=== PATIENT | female | born 1955 | race Caucasian/White ===

== ENCOUNTER 2018-05-21 17:03 | Observation (INO) ==
[2018-05-21 17:28] LABS: Basophils % 0.5 % (0.1-2.0); Eosinophils # 0.4 K/mm3 (0.0-0.4); Eosinophils % 5.4 % (0.1-12.0); Hematocrit 49.9 % (37.0-47.0); Hemoglobin 16.3 g/dL (12.2-16.2); Lymphocytes # 1.3 K/mm3 (0.7-4.5); Lymphocytes % 16.9 K/mm3 (10-50); Mean Corpuscular HGB Conc 32.7 g/dL (31.8-35.4); Mean Corpuscular Hemoglobin 28.2 pg (27.0-31.2); Mean Corpuscular Volume 86.3 fl (81-99); Mean Platelet Volume 6.6 fl (7.4-10.4); Monocytes # 0.5 K/mm3 (0.1-1.0); Monocytes % 5.9 % (1.7-9.3); Neutrophils # 5.7 K/mm3 (1.8-7.8); Neutrophils % 71.3 % (37.0-80.0); Platelet Count 235 K/mm3 (142-424); Red Blood Count 5.78 M/mm3 (4.20-5.40); Red Cell Distribution Width 13.8 % (11.5-17.5); White Blood Count 7.9 K/mm3 (4.8-10.8)
--- NOTE | 2018-05-21 17:28 | Emergency Department Note ---
ED Disposition Clinical Impression: Palpitations, CAD (coronary artery disease), Hypertension, Polycythemia, Lung nodule, Unstable angina, Diabetes Disposition: Still a Patient Condition on Discharge: Fair - Critical Care Critical Care Time: No Attestation: On , the high probability of a clinically significant, sudden or life threatening deterioration of the following system(s) required my full and direct attention, intervention and personal management. The time I documented below is in addition to time spent performing reported procedures but includes the following listed in this critical care notation. Medical Decision Making - Sammy Inquiry Pt receiving controlled substance: No Sammy was queried for this patient: No Vital Signs: 05/21/18 17:12 05/21/18 17:47 05/21/18 17:57 Temperature 98.0 F Temperature Source Oral Pulse Rate [Right Brachial] 78 75 76 Respiratory Rate 18 Blood Pressure [Right Arm] 205/110 158/68 110/74 Blood Pressure Mean [Right Arm] 141 98 86 Blood Pressure Source [Right Arm] Automatic Cuff Automatic Cuff Automatic Cuff Blood Pressure Position [Right Arm] Sitting Sitting 02 Sat by Pulse Oximetry 100 96 95 Oxygen Delivery Method Room Air 05/21/18 18:11 Temperature Temperature Source Pulse Rate [Right Brachial] Respiratory Rate Blood Pressure [Right Arm] 110/70 Blood Pressure Mean [Right Arm] 83 Blood Pressure Source [Right Arm] Automatic Cuff Blood Pressure Position [Right Arm] Standing 02 Sat by Pulse Oximetry Oxygen Delivery Method - Lab Data Lab Results 05/21/18 17:17: WBC 7.9, RBC 5.78 H, Hgb 16.3 H, Hct 49.9 H, MCV 86.3, MCH 28.2 , MCHC 32.7, RDW 13.8, Plt Count 235, MPV 6.6 L, Neut % (Auto) 71.3, Lymph % ( Auto) 16.9, [place] % (Auto) 5.9, Eos % (Auto) 5.4, Baso % (Auto) 0.5, Neut # (Auto ) 5.7, Lymph # (Auto) 1.3, [place] # (Auto) 0.5, Eos # (Auto) 0.4, Baso # (Auto) 0.0 05/21/18 17:17: Sodium 134 L, Potassium 3.6, Chloride 100, Carbon Dioxide 30, Anion Gap 4.3 L, BUN 15, Creatinine 0.97, Estimated Creat Clear 78, Estimated GFR 58 L, Est GFR ( Amer) 70, Glucose 226 H, Calcium 9.8, Total Bilirubin 0.7, AST 10 L, ALT 23, Alkaline Phosphatase 92, Total Creatine Kinase 37, CK-MB (CK-2) 0.5, CK-MB (CK-2) Rel Index 1.4, Troponin I < 0.02, Total Protein 7.9, Albumin 3.6, Globulin 4.3 H, Albumin/Globulin Ratio 0.8 L, TSH 0.01 L, Free T4 Index 2.4 L, Thyroxine (T4) 8.1, T3 Uptake 30 L 05/21/18 17:17: B-Natriuretic Peptide 15 05/21/18 17:17: Magnesium 1.8 Result diagrams: 05/21/18 17:17 05/21/18 17:17 Orders (Tests/Meds): ED MEDICATIONS Generic Name Dose Route Start Last Admin Trade Name Freq PRN Reason Stop Dose Admin Sodium Chloride 1,000 mls @ 500 mls/hr 05/21/18 17:30 05/21/18 17:57 Sod Chlor 0.9% 1000ml Bag IV 05/21/18 19:29 500 mls/hr .Q2H DARNELL Administration Discontinued Medications Generic Name Dose Route Start Last Admin Trade Name Freq PRN Reason Stop Dose Admin Nitroglycerin 0.5 gm 05/21/18 17:24 05/21/18 17:57 Nitroglycerin 1 Inch Oint Udp TD 05/21/18 17:25 Not Given ONCE ONE ORDERS Category Date Time Status XR chest portable Stat Exams 05/21/18 17:20 Taken - ECG Data Tracing #1 Normal sinus rhythm 73/min normal P-wave QRS and T waves no acute findings. ECG initial impression date: 05/21/18 ECG initial impression time: 17:10 Medical Decision Narrative: Ms. bradford's blood pressure is improved after nitroglycerin paste to 160 systolic she remained to be symptomatic with minimal exertion. I discussed her case with Dr. Anaya who believed it might be an angina equivalent, he would be admitted for rule out OH protocol and cardiac workup. Arrhythmia/Palpitations HPI - General Chief Complaint: Arrhythmia/Palpitations Stated Complaint: irregular heartrate and soa Time Seen by Provider: 05/21/18 17:20 Mode of Arrival: Wheelchair Limitations: No Limitations - History of Present Illness HPI narrative: 62 years old white female with history of coronary artery disease, status post CABG and rheumatoid arthritis. She fired her cardiology. 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 Today since 8:45 AM,she started experiencing palpitations every time she tries to talk, she is getting weaker and has decreased appetite. Onset (ago): hour(s) Time: 08:45 Duration: intermittent Context: occurred during exertion Associated symptoms: shortness of breath - Related Data Allergies Allergy/AdvReac Type Severity Reaction Status Date / Time Latex, Natural Rubber Allergy Verified 05/21/18 17:18 Penicillins Allergy Verified 05/21/18 17:18 [facility] History I have reviewed the patient's past medical history: Yes - Social History Smoking Status: Never smoker Alcohol Intake: never - Psychiatric History Expresses thoughts of harming self/others: None Suicide Plan Description: No Plan ROS Obtained: Yes All systems reviewed & no additional complaints Physical Exam - General General appearance: alert, in no apparent distress, anxious - Head Head exam: atraumatic, normocephalic, normal inspection - Eye Eye exam: Present: normal appearance, PERRL, EOMI. Absent: scleral icterus, nystagmus - ENT ENT exam: Present: normal exam, normal oropharynx, mucous membranes moist, TM's normal bilaterally, normal external ear exam - Neck Neck exam: Present: normal inspection, full ROM, trachea midline. Absent: tenderness, meningismus, lymphadenopathy - Chest Chest inspection: Present: normal inspection, symmetric chest wall rise. Absent : tenderness - Respiratory Respiratory exam: Present: normal lung sounds bilaterally. Absent: respiratory distress - Cardiovascular Cardiovascular exam: Present: regular rate, normal rhythm. Absent: JVD - Abdominal Exam Abdominal exam: Present: soft, normal bowel sounds. Absent: distention, tenderness, guarding - Extremities Exam Extremities exam: Present: normal inspection, full ROM, normal capillary refill. Absent: calf tenderness - Back Exam Back exam: Present: normal inspection. Absent: tenderness - Neurological Exam Neurological exam: Present: alert, oriented X3, CN II-XII intact, motor sensory deficit, reflexes normal - Psychiatric Psychiatric exam: Present: normal affect, normal mood - Skin Skin exam: Present: warm, dry, intact, normal color - Lymphatic Lymphatic Findings: no adenopathy
[2018-05-21 17:45] LABS: Alanine Aminotransferase 23 U/L (12-78); Albumin Level 3.6 gm/dL (3.4-5.0); Albumin/Globulin Ratio 0.8 (1.1-1.8); Alkaline Phosphatase 92 U/L (46-116); Anion Gap 4.3 mEq/L (5-15); Aspartate Amino Transferase 10 U/L (15-37); Bilirubin,Total 0.7 mg/dL (0.2-1.0); Blood Urea Nitrogen 15 mg/dL (7-18); Calcium 9.8 mg/dL (8.5-10.1); Carbon Dioxide 30 mmol/L (21.0-32.0); Chloride 100 mmol/L (98-107); Creatine Kinase 37 U/L (26-192); Globulin 4.3 gm/dl (1.3-3.2); Glucose 226 mg/dL (74-106); Potassium 3.6 mmoL/L (3.5-5.1); Sodium 134 mmol/L (136-145); Total Protein,Serum 7.9 gm/dL (6.4-8.2)
[2018-05-21 17:46] LABS: Free Thyroxine Index 2.4 ug/dL (5.93-13.13); T4 (Thyroxine) 8.1 ug/dl (4.7-13.3); Triiodothryronine (T3) Uptake 30 % (31-39)
[2018-05-21 17:52] LABS: Thyroid Stimulating Hormone 0.01 uIU/ml (0.358-3.740)
[2018-05-22 06:27] LABS: Basophils # 0.1 K/mm3 (0-0.2); Basophils % 0.5 % (0.1-2.0); Eosinophils # 0.6 K/mm3 (0.0-0.4); Eosinophils % 6.9 % (0.1-12.0); Hematocrit 42.8 % (37.0-47.0); Lymphocytes # 2.3 K/mm3 (0.7-4.5); Lymphocytes % 26.2 K/mm3 (10-50); Mean Corpuscular HGB Conc 32.6 g/dL (31.8-35.4); Mean Corpuscular Volume 85.9 fl (81-99); Mean Platelet Volume 6.6 fl (7.4-10.4); Monocytes # 0.7 K/mm3 (0.1-1.0); Monocytes % 8.3 % (1.7-9.3); Neutrophils % 58.1 % (37.0-80.0); Platelet Count 202 K/mm3 (142-424); Red Blood Count 4.98 M/mm3 (4.20-5.40); Red Cell Distribution Width 13.8 % (11.5-17.5); White Blood Count 8.6 K/mm3 (4.8-10.8)
[2018-05-22 06:39] LABS: Hemoglobin 13.9 g/dL (12.2-16.2)
[2018-05-22 07:02] LABS: Anion Gap 9.3 mEq/L (5-15); Blood Urea Nitrogen 12 mg/dL (7-18); Carbon Dioxide 29 mmol/L (21.0-32.0); Chloride 107 mmol/L (98-107); Chol/HDL Ratio 3.7 (1-3.5); Cholesterol 160 mg/dL (140-200); Glucose 97 mg/dL (74-106); HDL Cholesterol 43 mg/dL (29-89); LDL Cholesterol 97 mg/dL (0-130); Potassium 3.3 mmoL/L (3.5-5.1); Sodium 142 mmol/L (136-145); Triglycerides 101 mg/dL (30-200); VLDL Cholesterol 20 mg/dL (0-40)
[2018-05-22 07:06] LABS: Calcium 8.8 mg/dL (8.5-10.1)
--- NOTE | 2018-05-22 07:11 | Pharmacy Consult Notes ---
[facility] Pharmacy VTE Monitoring - Patient Demographics Admission date: 05/21/18 Report Date: 05/22/18 Time: 07:10 Allergies/Adverse Reactions: Patient Allergies Latex, Natural Rubber Allergy (Verified 05/21/18 17:18) morphine Allergy (Verified 05/21/18 19:28) Sulfa (Sulfonamide Antibiotics) Allergy (Verified 05/21/18 19:28) Height: 1.63 m Weight: 89.9 kg Patient Problems: Current Active Problems Palpitations (Acute) CAD (coronary artery disease) (Acute) Hypertension (Acute) Polycythemia (Acute) Lung nodule (Acute) Unstable angina (Acute) Diabetes (Acute) - VTE Risk Labs: VTE Related Lab Results Hgb 13.9 g/dL (12.2-16.2) D 05/22/18 06:08 Hct 42.8 % (37.0-47.0) 05/22/18 06:08 Plt Count 202 K/mm3 (142-424) 05/22/18 06:08 BUN 12 mg/dL (7-18) 05/22/18 06:08 Creatinine 0.64 mg/dL (0.55-1.02) D 05/22/18 06:08 Estimated Creat Clear 81 mL/min (0-300) 05/22/18 06:08 VTE Score: 7 VTE Risk Level: Moderate Risk - Prophylaxis VTE Prophylaxis Ordered?: Yes Types of VTE Prophylaxis: Pharmacological Pharmacologic Type: Enoxaparin - VTE Diagnosis Confirmed Treatment or plan recommended: Continue Current Treatment
--- NOTE | 2018-05-22 07:48 | History & Physical Report ---
*Admission Date: 05/21/18 *Chief complaint: Shortness of air *History of present illness: 62-year-old white female, history of coronary disease, status post CABG approximately 6 years ago and left heart catheterization one year ago with uncertain results, who presented to the emergency department yesterday evening with the insidious onset of shortness of air that culminated in restriction of her activities yesterday. Also notes that she has had increasing edema over the past couple of weeks. She has denies chest pain but does report some palpitations. In the emergency department her laboratory studies including BNP levels and troponins were unremarkable, had evidence of overmedicated hypothyroidism with suppressed TSH levels and slight hypokalemia. She was admitted for rule out HI and further diagnostic testing. Apparently she no longer sees her cardiology group in [facility]. [facility] History I have reviewed the patient's past medical history: Yes Medical History: Reports:: Atherosclerotic Heart Disease, Coronary Artery Disease, Hyperlipidemia, Hypertension, Myocardial Infarction, Palpitations Denies:: Cancer, Diabetes Mellitus Type 1, Diabetes Mellitus Type 2, MRSA Other Medical History: Reports: Arthritis, Chemotherapy (not for cancer), Hypothyroidism, Sinus Problems Other Surgeries: Yes: Angiogram, Cardiac Catheterization, Cardiac Surgery, Hysterectomy-Total Amputation: No Fractures: No - *Social History Educational Level: Completed College Smoking Status: Former smoker Alcohol Intake: never Occupational Status: disabled Housing: house Household Members: other - Psychiatric History Expresses thoughts of harming self/others: None Suicide Plan Description: No Plan *Family Hx:: Cancer, Coronary Artery Disease, Diabetes, Hypertension Review of Systems - Review of Systems Review of systems:: pertinent systems reviewed and negative unless documented below - Constitutional Denies anorexia, Denies body ache(s), Denies chills - Eyes Denies blind spots, Denies blurry vision - ENT Denies abnormal hearing, Denies bleeding gums, Denies change in voice - *Cardiovascular Reports shortness of breath, Reports shortness of breath with activity, Reports leg swelling, Reports rapid, pounding, or irregular heartbeat, Reports foot swelling, Denies chest pain, Denies chest pain at rest, Denies chest pain with activity, Denies leg pain with activity, Denies excessive sweating, Denies generalized swelling, Denies irregular heart rhythm, Denies lightheadedness, Denies shortness of breath when lying down, Denies shortness of breath causing sudden awakening - *Respiratory Reports shortness of breath with activity, Denies change in phlegm color, Denies chest congestion - *Gastrointestinal Denies abdominal pain, Denies belching - *Musculoskeletal Denies abnormal walking, Denies joint pain, Denies decreased muscle mass - *Neurologic Denies abnormal walking, Denies abnormal hearing Meds Home Medications Medication Instructions Recorded Confirmed Type Furosemide [Furosemide 40MG tAB] 40 mg PO DAILY PRN 05/21/18 05/21/18 History Lisinopril [Lisinopril 10mg Tab] 10 mg PO DAILY 05/21/18 05/21/18 History Naproxen 500 mg PO DAILY 05/21/18 History Thyroid,Pork [[place] Thyroid] 120 mg PO DAILY 05/21/18 05/21/18 History Allergies Allergy/AdvReac Type Severity Reaction Status Date / Time Latex, Natural Rubber Allergy Verified 05/21/18 17:18 morphine Allergy Verified 05/21/18 19:28 Sulfa (Sulfonamide Allergy Verified 05/21/18 19:28 Antibiotics) Exam Vital signs and Labs for Last 24 Hours: Temp Pulse Resp BP Pulse Ox 97.8 F 79 18 143/74 94 L 05/22/18 07:22 05/22/18 07:22 05/22/18 07:22 05/22/18 07:22 05/22/18 07:22 Laboratory Results - last 24 hr 05/21/18 17:17: WBC 7.9, RBC 5.78 H, Hgb 16.3 H, Hct 49.9 H, MCV 86.3, MCH 28.2 , MCHC 32.7, RDW 13.8, Plt Count 235, MPV 6.6 L, Neut % (Auto) 71.3, Lymph % ( Auto) 16.9, [place] % (Auto) 5.9, Eos % (Auto) 5.4, Baso % (Auto) 0.5, Neut # (Auto ) 5.7, Lymph # (Auto) 1.3, [place] # (Auto) 0.5, Eos # (Auto) 0.4, Baso # (Auto) 0.0 05/21/18 17:17: Sodium 134 L, Potassium 3.6, Chloride 100, Carbon Dioxide 30, Anion Gap 4.3 L, BUN 15, Creatinine 0.97, Estimated Creat Clear 78, Estimated GFR 58 L, Est GFR ( Amer) 70, Glucose 226 H, Calcium 9.8, Total Bilirubin 0.7, AST 10 L, ALT 23, Alkaline Phosphatase 92, Total Creatine Kinase 37, CK-MB (CK-2) 0.5, CK-MB (CK-2) Rel Index 1.4, Troponin I < 0.02, Total Protein 7.9, Albumin 3.6, Globulin 4.3 H, Albumin/Globulin Ratio 0.8 L, TSH 0.01 L, Free T4 Index 2.4 L, Thyroxine (T4) 8.1, T3 Uptake 30 L 05/21/18 17:17: B-Natriuretic Peptide 15 05/21/18 17:17: Magnesium 1.8 05/21/18 20:20: Troponin I < 0.02 05/22/18 01:35: Troponin I < 0.02 05/22/18 06:08: WBC 8.6, RBC 4.98, Hgb 13.9 D, Hct 42.8, MCV 85.9, MCH 28.0, MCHC 32.6, RDW 13.8, Plt Count 202, MPV 6.6 L, Neut % (Auto) 58.1, Lymph % (Auto ) 26.2, [place] % (Auto) 8.3, Eos % (Auto) 6.9, Baso % (Auto) 0.5, Neut # (Auto) 5.0, Lymph # (Auto) 2.3, [place] # (Auto) 0.7, Eos # (Auto) 0.6 H, Baso # (Auto) 0.1 05/22/18 06:08: Sodium 142, Potassium 3.3 L, Chloride 107, Carbon Dioxide 29, Anion Gap 9.3, BUN 12, Creatinine 0.64 D, Estimated Creat Clear 81, Estimated GFR 93, Est GFR ( Amer) 113 D, Glucose 97 D, Calcium 8.8 D, Troponin I < 0.02, Triglycerides 101, Cholesterol 160, LDL Cholesterol 97, VLDL Cholesterol 20, HDL Cholesterol 43, Cholesterol/HDL Ratio 3.7 H I & O for Last 24 hours: Intake & Output 05/19/18 05/20/18 05/21/18 05/22/18 11:59 11:59 11:59 11:59 Output Total 550 / 550 Balance -550 / -550 Weight 198 lb 3.129 oz Narrative: Patient is awake, alert, oriented 3, pleasant. Oropharynx clear, no JVD, otherwise ENT exam negative. Lungs have bibasilar crackles about one fourth of the way up the chest bilaterally in the posterior ramey. Anterior ramey are clear. Abdomen soft and nontender, heart rate regular without murmurs or gallops, trace ankle edema but good distal pulses, extremities are warm and well-perfused, no clubbing or cyanosis. H&P: Result - Labs Labs: Short CBC 05/21/18 05/22/18 Range/Units 17:17 06:08 WBC 7.9 8.6 (4.8-10.8) K/mm3 Hgb 16.3 H 13.9 D (12.2-16.2) g/dL Hct 49.9 H 42.8 (37.0-47.0) % Plt Count 235 202 (142-424) K/mm3 BMP 05/21/18 05/22/18 17:17 06:08 Sodium 134 L 142 Potassium 3.6 3.3 L Chloride 100 107 Carbon Dioxide 30 29 BUN 15 12 Creatinine 0.97 0.64 D Glucose 226 H 97 D Calcium 9.8 8.8 D Cardiac Enzymes 05/21/18 05/21/18 05/22/18 Range/Units 17:17 20:20 01:35 Total Creatine Kinase 37 (26-192) U/L CK-MB (CK-2) 0.5 (0.0-3.6) ng/ml Troponin I < 0.02 < 0.02 < 0.02 (0.00-0.06) ng/ml 05/22/18 Range/Units 06:08 Total Creatine Kinase (26-192) U/L CK-MB (CK-2) (0.0-3.6) ng/ml Troponin I < 0.02 (0.00-0.06) ng/ml Liver Function 05/21/18 Range/Units 17:17 Total Bilirubin 0.7 (0.2-1.0) mg/dL AST 10 L (15-37) U/L ALT 23 (12-78) U/L Alkaline Phosphatase 92 (46-116) U/L Albumin 3.6 (3.4-5.0) gm/dL Assessment and Plan (1) Hypothyroidism Current visit: Yes Status: Acute Category: Medical Code(s): E03.9 - Hypothyroidism, unspecified Slightly suppressed. Patient is on [place] Thyroid at home. We will do a lower dose of levothyroxine here. (2) Obesity (BMI 30.0-34.9) Current visit: Yes Status: Acute Category: Medical Code(s): E66.9 - Obesity, unspecified Complicates all aspects of her care (3) CAD (coronary artery disease) Current visit: Yes Status: Acute Category: Medical Code(s): I25.10 - Atherosclerotic heart disease of [place] coronary artery without angina pectoris Cardiology consultation. Obtain old records from recent heart catheterization from [facility]. Echogram today given her increasing dyspnea. (4) Diabetes Current visit: Yes Status: Acute Category: Medical Code(s): E11.9 - Type 2 diabetes mellitus without complications Hyperglycemia consistent with diabetes and ER. Patient unaware of this diagnosis. We will watch glucose levels in the hospital. (5) Hypertension Current visit: Yes Status: Acute Category: Medical Code(s): I10 - Essential (primary) hypertension Ongoing problem. Complicates ongoing care. (6) Lung nodule Current visit: Yes Status: Acute Category: Medical Code(s): R91.1 - Solitary pulmonary nodule Chest x-ray report reviewed. Given shortness of air and lung crackles CT scan of chest today. (7) Palpitations Current visit: Yes Status: Acute Category: Medical Code(s): R00.2 - Palpitations Watch on telemetry. Continue low-dose beta-gokul. (8) Polycythemia Current visit: Yes Status: Acute Category: Medical Code(s): D75.1 - Secondary polycythemia Possibly from ongoing ischemic heart disease versus lung process?. See above notes on workup.
--- NOTE | 2018-05-22 08:02 | Consult Report ---
History of Present Illness Consult date: 05/22/18 Requesting physician: Monroe Locke Consult reason: shortness of breath Chief complaint: SOA Additional Medical History:: 1. Coronary artery disease A. Three-vessel coronary bypass grafting approximately 2009, [facility] B. History of cardiac catheterization in the last couple of years reportedly without need for recurrent intervention, [facility] report unavailable at this time 2. Hypertension 3. Hyperlipidemia, refusal to take statin therapy 4. Rheumatoid arthritis, treated with diet and intermittent steroid use 5. History of gastric ulcers 6. Hypothyroidism, on replacement therapy History of present illness: 62-year-old white female with history of coronary artery disease status post three-vessel coronary bypass grafting, hypertension, hyperlipidemia and rheumatoid arthritis presented to the hospital for at least a one-month history of increasing shortness of breath. Patient relates symptoms mainly occur with activity and have become quite limiting in her daily activities. She does note occasional palpitations. On the day of admission the patient did not feel well and actually did vomit. Denies any diaphoresis. Patient does note rapid heart rates from time to time but cannot correlate to her shortness of breath specifically. Patient was admitted for observation with serial cardiac enzymes returning normal. EKG is sinus and unremarkable. Laboratory results show evidence of hyper thyroidism. Cardiology consulted for evaluation recommendations. Request for medical records from [place] has been made already but are unavailable at this time. CAT scan of the chest is to be ordered due to patient shortness of breath and crackles on exam. [facility] History Medical History: Reports:: Atherosclerotic Heart Disease, Coronary Artery Disease, Hyperlipidemia, Hypertension, Myocardial Infarction, Palpitations Denies:: Cancer, Diabetes Mellitus Type 1, Diabetes Mellitus Type 2, MRSA Other Medical History: Reports: Arthritis, Chemotherapy (not for cancer), Hypothyroidism, Sinus Problems Other Surgeries: Yes: Angiogram, Cardiac Catheterization, Cardiac Surgery, Hysterectomy-Total Amputation: No Fractures: No - *Social History Educational Level: Completed College Smoking Status: Former smoker Alcohol Intake: never Occupational Status: disabled Housing: house Household Members: other - Psychiatric History Expresses thoughts of harming self/others: None Suicide Plan Description: No Plan *Family Hx:: Cancer, Coronary Artery Disease, Diabetes, Hypertension Meds Home Medications Medication Instructions Recorded Confirmed Type Furosemide [Furosemide 40MG tAB] 40 mg PO DAILY PRN 05/21/18 05/21/18 History Lisinopril [Lisinopril 10mg Tab] 10 mg PO DAILY 05/21/18 05/21/18 History Naproxen 500 mg PO DAILY 05/21/18 History Thyroid,Pork [[place] Thyroid] 120 mg PO DAILY 05/21/18 05/21/18 History Allergies Allergy/AdvReac Type Severity Reaction Status Date / Time Latex, Natural Rubber Allergy Verified 05/21/18 17:18 morphine Allergy Verified 05/21/18 19:28 Sulfa (Sulfonamide Allergy Verified 05/21/18 19:28 Antibiotics) Review of Systems - *Cardiovascular Reports shortness of breath with activity, Denies chest pain - *Respiratory Reports shortness of breath with activity - *Gastrointestinal Denies abdominal pain - *Genitourinary Denies difficulty urinating - *Musculoskeletal Reports joint pain - *Neurologic Denies abnormal walking, Denies abnormal hearing Exam Vital signs and Labs for Last 24 Hours: Temp Pulse Resp BP Pulse Ox 97.8 F 79 18 143/74 94 L 05/22/18 07:22 05/22/18 07:22 05/22/18 07:22 05/22/18 07:22 05/22/18 07:22 Laboratory Results - last 24 hr 05/21/18 17:17: WBC 7.9, RBC 5.78 H, Hgb 16.3 H, Hct 49.9 H, MCV 86.3, MCH 28.2 , MCHC 32.7, RDW 13.8, Plt Count 235, MPV 6.6 L, Neut % (Auto) 71.3, Lymph % ( Auto) 16.9, [place] % (Auto) 5.9, Eos % (Auto) 5.4, Baso % (Auto) 0.5, Neut # (Auto ) 5.7, Lymph # (Auto) 1.3, [place] # (Auto) 0.5, Eos # (Auto) 0.4, Baso # (Auto) 0.0 05/21/18 17:17: Sodium 134 L, Potassium 3.6, Chloride 100, Carbon Dioxide 30, Anion Gap 4.3 L, BUN 15, Creatinine 0.97, Estimated Creat Clear 78, Estimated GFR 58 L, Est GFR ( Amer) 70, Glucose 226 H, Calcium 9.8, Total Bilirubin 0.7, AST 10 L, ALT 23, Alkaline Phosphatase 92, Total Creatine Kinase 37, CK-MB (CK-2) 0.5, CK-MB (CK-2) Rel Index 1.4, Troponin I < 0.02, Total Protein 7.9, Albumin 3.6, Globulin 4.3 H, Albumin/Globulin Ratio 0.8 L, TSH 0.01 L, Free T4 Index 2.4 L, Thyroxine (T4) 8.1, T3 Uptake 30 L 05/21/18 17:17: B-Natriuretic Peptide 15 05/21/18 17:17: Magnesium 1.8 05/21/18 20:20: Troponin I < 0.02 05/22/18 01:35: Troponin I < 0.02 05/22/18 06:08: WBC 8.6, RBC 4.98, Hgb 13.9 D, Hct 42.8, MCV 85.9, MCH 28.0, MCHC 32.6, RDW 13.8, Plt Count 202, MPV 6.6 L, Neut % (Auto) 58.1, Lymph % (Auto ) 26.2, [place] % (Auto) 8.3, Eos % (Auto) 6.9, Baso % (Auto) 0.5, Neut # (Auto) 5.0, Lymph # (Auto) 2.3, [place] # (Auto) 0.7, Eos # (Auto) 0.6 H, Baso # (Auto) 0.1 05/22/18 06:08: Sodium 142, Potassium 3.3 L, Chloride 107, Carbon Dioxide 29, Anion Gap 9.3, BUN 12, Creatinine 0.64 D, Estimated Creat Clear 81, Estimated GFR 93, Est GFR ( Amer) 113 D, Glucose 97 D, Calcium 8.8 D, Troponin I < 0.02, Triglycerides 101, Cholesterol 160, LDL Cholesterol 97, VLDL Cholesterol 20, HDL Cholesterol 43, Cholesterol/HDL Ratio 3.7 H I & O for Last 24 hours: Intake & Output 05/19/18 05/20/18 05/21/18 05/22/18 11:59 11:59 11:59 11:59 Intake Total 0 / 0 Output Total 550 / 550 Balance -550 / -550 Weight 198 lb 3.129 oz - *Routine Neck Exam Absent: JVD, carotid bruit - *Routine Respiratory Exam Present: crackles. Absent: rhonchi, wheezes - *Routine Cardiovascular Exam Present: RRR. Absent: murmur, gallop, rubs - *Routine Extremities Exam Absent: edema - *Routine Neurological Exam Present: alert, oriented X3, moving all extremities Assessment and Plan (1) Hypothyroidism Current visit: Yes Status: Acute Category: Medical Code(s): E03.9 - Hypothyroidism, unspecified (2) Obesity (BMI 30.0-34.9) Current visit: Yes Status: Acute Category: Medical Code(s): E66.9 - Obesity, unspecified (3) CAD (coronary artery disease) Current visit: Yes Status: Acute Category: Medical Code(s): I25.10 - Atherosclerotic heart disease of [place] coronary artery without angina pectoris (4) Diabetes Current visit: Yes Status: Acute Category: Medical Code(s): E11.9 - Type 2 diabetes mellitus without complications (5) Hypertension Current visit: Yes Status: Acute Category: Medical Code(s): I10 - Essential (primary) hypertension (6) Lung nodule Current visit: Yes Status: Acute Category: Medical Code(s): R91.1 - Solitary pulmonary nodule (7) Palpitations Current visit: Yes Status: Acute Category: Medical Code(s): R00.2 - Palpitations (8) Polycythemia Current visit: Yes Status: Acute Category: Medical Code(s): D75.1 - Secondary polycythemia (9) Shortness of breath on exertion Current visit: Yes Status: Acute Category: Medical Code(s): R06.02 - Shortness of breath - Assessment and plan all Dx Assessment and Plan for all problems:: 1. Obtain medical records from [facility] regarding most recent cardiac catheterization. 2. Agree with CT of the chest and echocardiogram. Preliminary echocardiogram shows preserved left ventricular ejection fraction without evidence of pericardial effusion. 3. Further recommendations to follow pending above results.
--- NOTE | 2018-05-22 21:54 | Cardiology Report ---
PROCEDURE: 2-D M-mode and color Doppler study INDICATIONS FOR THE TEST: Chest pain COPD Heart Murmur Tobacco SmokingEX Palpitations Fatigue Syncope Edema HypertensionXDiabetes Mellitus Rheumatic Fever SOBXDOE ObesityXHyperlipidemiaX Family History HD Additional History CAD,CABG PATIENT INFORMATION HEIGHT: 62 WEIGHT:198 GENDER: Female B/P:110/70 2-D/M-MODE INTERPRETATION: 2-D MEASUREMENTS OBSERVED VALUES IN CMS Right Ventricular Dimension (RVDd) 1.5 Interventricular Septum (Thickness)(IVsd) .9 Left Ventricular Internal Dimensions(LVIDd) 5.2 Left Ventricular Posterior Wall (Thickness)(LVPWd) 1.1 Aortic Root 3.0 Aortic Cusp Separation 1.8 Left Atrial Dimensions (LAD) 2.8 2D 1. Left atrium is mildly enlarged, left ventricle is normal size, there is mild qualitative concentric left ventricular hypertrophy, visually estimated ejection fraction 55% with no obvious regional wall motion abnormality. 2. The right atrium and right ventricle are normal size and contractility. 3. The aortic valve is minimally thickened and fibrosed. 4. The mitral and tricuspid valve leaflets are minimally thickened. 5. The pulmonic valve is poorly visualized. 6. No significant pericardial effusion noted. DOPPLER INTERROGATION: Doppler interrogation of the aortic, mitral and tricuspid valvular presence of mild aortic, mild mitral and tricuspid regurgitation, tricuspid regurgitant jet velocity insufficient for calculation of the right ventricular systolic pressure, diastolic parameters are inconclusive. CONCLUSION: 1. Mildly enlarged left atrium, normal left ventricular size, mild concentric left ventricular hypertrophy, visually estimated ejection fraction 55% with no obvious regional wall motion abnormality, diastolic parameters are inconclusive. 2. Mild aortic, mild mitral and tricuspid regurgitation 3. No significant pericardial effusion noted.
--- NOTE | 2018-05-23 07:45 | Progress Note ---
Subjective Date: 05/23/18 Time: 07:42 Principal diagnosis: SOA Interval history: 62 yo WF in bed in NAD. No chest pains. 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 Exam Vital signs and Labs for Last 24 Hours: Temp Pulse Resp BP Pulse Ox 97.8 F 67 18 128/50 95 05/23/18 04:00 05/23/18 04:00 05/23/18 04:00 05/23/18 04:00 05/23/18 04:00 I & O for Last 24 hours: Intake & Output 05/20/18 05/21/18 05/22/18 05/23/18 11:59 11:59 11:59 11:59 Intake Total 0 / 0 1545 / 1545 Output Total 550 / 550 1300 / 1300 Balance -550 / -550 245 / 245 Weight 198 lb 3.129 oz - *Routine Neck Exam Absent: JVD, carotid bruit - *Routine Respiratory Exam Comments: bibasilar crackles noted. - *Routine Cardiovascular Exam Present: RRR. Absent: murmur, gallop Progress Note: A&P (1) Hypothyroidism Status: Acute Current Visit: Yes (2) Obesity (BMI 30.0-34.9) Status: Acute Current Visit: Yes (3) CAD (coronary artery disease) Status: Acute Current Visit: Yes (4) Diabetes Status: Acute Current Visit: Yes (5) Hypertension Status: Acute Current Visit: Yes (6) Lung nodule Status: Acute Current Visit: Yes (7) Palpitations Status: Acute Current Visit: Yes (8) Polycythemia Status: Acute Current Visit: Yes (9) Shortness of breath on exertion Status: Acute Current Visit: Yes Assessment and Plan for All Diagnoses:: Echo shows normal LVEF without significant valve disease. Recent cardiac cath showed patent bypass grafts, 07/[address] of chest shows atelectasis with possible bronchitis. Would recommend adding additional anti-anginal in the form of isosorbide mononitrate 30 mg daily. Ok for discharge from cardiology standpoint with plans for outpatient stress test.
--- NOTE | 2018-05-23 08:09 | Discharge Summary ---
General - General Admission date:: 05/21/18 Discharge date: 05/23/18 HPI HPI: 62-year-old white female, history of coronary disease, status post CABG approximately 6 years ago and left heart catheterization one year ago with uncertain results, who presented to the emergency department yesterday evening with the insidious onset of shortness of air that culminated in restriction of her activities yesterday. Also notes that she has had increasing edema over the past couple of weeks. She has denies chest pain but does report some palpitations. In the emergency department her laboratory studies including BNP levels and troponins were unremarkable, had evidence of overmedicated hypothyroidism with suppressed TSH levels and slight hypokalemia. She was admitted for rule out TN and further diagnostic testing. Apparently she no longer sees her cardiology group in [facility]. Hospital Course Hospital Course: Admitted for progressive dyspnea with exertion. Serial troponins obtained due to patient's cardiac history and concern for anginal equivalent. Troponins negative. Cardiology was consulted during admission. Obtained outside hospital heart cath records. Remarkable for patent bypass graft 07/26. Echo was obtained showing normal left ventricular ejection fraction without significant valvular disease. CT of chest also obtained which was remarkable for atelectasis and possible bronchitis. Further history elicited patient was a longtime smoker who quit many years ago. Not any inhalers or COPD medications. Has never been diagnosed with COPD however presentation consistent with a mild COPD exacerbation in the setting of normal cardiac workup. Symptoms of daily cough productive of sputum, shortness of breath, and smoking history make chronic bronchitis likely diagnosis. Cardiology recommended no further workup at this time as heart cath was less than 1 year ago. From a cardiology standpoint they recommended addition of isosorbide if patient's symptoms persist to optimize care for anginal equivalent symptoms. Initiated prednisone 40 mg for a 5 day course to treat as chronic bronchitis/ COPD exacerbation in the setting of previously undiagnosed/managed COPD. Initiate on inhalers in outpatient setting. Patient has primary care in [facility] close to her home that she would like to follow with. Instructed to follow-up within 1 week. Patient needs outpatient pulmonary function tests, stress test, consideration for creation of isosorbide mononitrate 30 mg daily if poor response to respiratory medications. Plan cardiology in 2 weeks. Objective Vital signs: Temp Pulse Resp BP Pulse Ox 97.8 F 67 18 128/50 95 05/23/18 04:00 08/14/18 04:00 05/23/18 04:00 05/23/18 04:00 05/23/18 04:00 - *Routine HEENT Exam Head: Present: normocephalic, atraumatic Eye: Present: EOMI, PERRL ENT: Present: mucous membranes moist, dentition normal - *Routine Neck Exam Present: supple. Absent: lymphadenopathy - *Routine Respiratory Exam Present: CTA bilaterally (In upper lung ramey), prolonged expiratory phase, crackles (Bibasilar crackles). Absent: accessory muscle use, rales, stridor, wheezes - *Routine Cardiovascular Exam Present: RRR, Normal S1, Normal S2. Absent: murmur - *Routine Abdominal Exam Present: soft, normoactive bowel sounds. Absent: organomegaly - *Routine Rectal Exam Patient deferred: visual exam - *Routine Exam Patient deferred: external exam - *Routine Extremities Exam Absent: cyanosis, clubbing, edema Comments: Well-healed incision along medial aspect of right leg consistent with vein graft harvest from bypass - *Routine Skin Exam Present: intact. Absent: cyanosis, erythema - *Routine Neurological Exam Present: alert, oriented X3, CN II-XII intact - Routine Psychiatric Exam Present: normal affect, cooperative DS: Diagnosis - Discharge Diagnosis (1) Hypothyroidism Status: Acute (2) Obesity (BMI 30.0-34.9) Status: Acute (3) CAD (coronary artery disease) Status: Acute (4) Diabetes Status: Acute (5) Hypertension Status: Acute (6) Lung nodule Status: Acute (7) Palpitations Status: Acute (8) Polycythemia Status: Acute (9) Shortness of breath on exertion Status: Acute (10) Bronchitis, chronic Status: Chronic Discharge Plan - Patient Discharge Instructions ACTIVITY: Continue current activity, Ambulate as tolerated DIET: continue same diet - Follow up Plan Follow up with: Fer García MD [Staff Physician] - 2 weeks Unknown provider or service follow up:: 05/23/18 10:08 Patient's primary care provider in [facility], she is to schedule this appointment. Disposition: Home, Self-Group Home Medications: Home Medications Medication Instructions Recorded Confirmed Type Furosemide [Furosemide 40MG tAB] 40 mg PO DAILY PRN 05/21/18 05/21/18 History Lisinopril [Lisinopril 10mg Tab] 10 mg PO DAILY 05/21/18 05/21/18 History Thyroid,Pork [[place]oy Thyroid] 120 mg PO DAILY 05/21/18 05/21/18 History Aspirin [Aspirin 81mg EC Tab] 81 mg PO DAILY 05/23/18 05/23/18 History Carvedilol [Coreg 6.25mg 6.25 mg PO HS 05/23/18 05/23/18 History Tablet] Prescriptions/Medication Reconciliation: New predniSONE [Deltasone 20mg tablet] 40 mg PO DAILY 4 Days #4 tab Continue Thyroid,Pork [[place]oy Thyroid] 120 mg PO DAILY Lisinopril [Lisinopril 10mg Tab] 10 mg PO DAILY Furosemide [Furosemide 40MG tAB] 40 mg PO DAILY PRN PRN Reason: FLUID RETENTION Carvedilol [Coreg 6.25mg Tablet] 6.25 mg PO HS Aspirin [Aspirin 81mg EC Tab] 81 mg PO DAILY
== END 2018-05-23 11:50 | disposition home or self-care (01) ==
LOC: ER 17:03 → 2ND 17:03
PROVIDERS: ADMIT Internal Medicine Adolescent Medicine; ATTEND Internal Medicine Adolescent Medicine